=== PATIENT | male | born 1960 ===

== ENCOUNTER 2018-06-01 18:47 | Emergency (ER) | payer MEDICARE ==
[2018-06-01] MEDS ORDERED: ZOFRAN IV ONE (19:15)
[2018-06-01] MEDS ORDERED: NACL 0.9% 1000 ML 1,000 ML IV ONE (19:15)
[2018-06-01] MEDS ORDERED: MORPHINE IV ONE (19:16)
--- NOTE | 2018-06-01 19:22 | Emergency Department Report ---
HPI - General Chief Complaint: Abdominal Pain Time Seen by Provider: 06/01/18 19:15 - HPI HPI: 57-year-old -[place] male presents to the emergency department via EMS with complaint of a one-day history of generalized abdominal pain, nausea and vomiting. He has a history of recurrent pancreatitis, diabetes, peripheral neuropathy and history of alcohol abuse. He says that he had not drank any alcohol in about 3 months until he took a shot earlier today that started his symptoms. He did not receive anything for her symptoms in route. No recent travel or sick contacts at home. He denies any tobacco or illicit drug use or abuse. He says that he follows with a Dr. Stuart Gonzalez for primary care in [facility]. He denied feeling is that he had a fever despite the fact that he presents with a elevated temperature of 102.3 Fahrenheit. ED Past Medical Hx - Past Medical History Previous Medical History?: Yes Hx Diabetes: Yes Additional medical history: pancreatitis, ETOH abuse, Neuropathy. - Social History Smoking Status: Never Smoker Substance Use Type: Alcohol - Medications Home Medications: Home Medications Medication Instructions Recorded Confirmed Last Taken Type HYDROcodone/APAP 5-325 [[place] 1 each PO Q6HR PRN #10 tablet 06/01/18 Unknown Rx 5/325] levoFLOXacin [Levaquin] 750 mg PO QDAY #7 tablet 06/01/18 Unknown Rx ED Review of Systems ROS: Stated complaint: NAUSEA/VOMITING Other details as noted in HPI Comment: All other systems reviewed and negative Constitutional: fever (presents with fever). denies: weakness Eyes: denies: eye pain, eye discharge, vision change ENT: denies: ear pain, throat pain Respiratory: denies: cough, shortness of breath, wheezing Cardiovascular: denies: chest pain, palpitations Gastrointestinal: abdominal pain, nausea, vomiting Genitourinary: denies: urgency, dysuria Musculoskeletal: denies: back pain, joint swelling, arthralgia Skin: denies: rash, lesions Neurological: denies: headache, weakness Physical Exam - Physical Exam Vital Signs: Vital Signs 06/01/18 18:51 Temperature 102.3 F H Pulse Rate 93 H Respiratory 26 H Rate Blood Pressure 146/89 Blood Pressure 146/89 [Right] O2 Sat by Pulse 97 Oximetry Physical Exam: GENERAL: The patient is well-developed well-nourished. HENT: Normocephalic. Atraumatic. Patient has moist mucous membranes. EYES: Extraocular motions are intact. Pupils equal reactive to light bilaterally. NECK: Supple. Trachea is midline. CHEST/LUNGS: Clear to auscultation. There is no respiratory distress noted. HEART/CARDIOVASCULAR: Regular. There is no tachycardia. There is no murmur. ABDOMEN: Abdomen is soft. There is generalized abdominal tenderness to palpation. No guarding. Patient has normal bowel sounds. There is no abdominal distention. SKIN: There is no rash. There is no edema. There is no diaphoresis. NEURO: The patient is awake, alert, and oriented. The patient is cooperative. The patient has no focal neurologic deficits. The patient has normal speech. MUSCULOSKELETAL: There is no tenderness or deformity. There is no limitation range of motion. There is no evidence of acute injury. ED Course Vital Signs 06/01/18 18:51 Temperature 102.3 F H Pulse Rate 93 H Respiratory 26 H Rate Blood Pressure 146/89 Blood Pressure 146/89 [Right] O2 Sat by Pulse 97 Oximetry ED Medical Decision Making - Lab Data Result diagrams: 06/01/18 19:20 06/01/18 19:20 - Radiology Data Radiology results: report reviewed, image reviewed interpreted by me: Abdominal x-ray shows nonspecific nonobstructive bowel gas CT scan of the abdomen and pelvis with IV contrast shows a left lower lobe infiltrate suspicious for pneumonia. There is a intramedullary lalitha noted in the left femur. The patient is status post cholecystectomy. No pancreatic abnormalities seen. No signs of free fluid or free air. No evidence of small bowel dilatation. - Medical Decision Making Patient presents with a complaint of abdominal pain, nausea, vomiting. He presents with a fever. The patient has a history of recurrent pancreatitis and the patient admits to having a shot of alcohol earlier in the morning that started his symptoms. The patient does not have any leukocytosis. He has some mild hyponatremia with a sodium of 130, he has hyperglycemia with a sugar of 270 but does not appear to be in diabetic ketoacidosis. He has a normal lipase , slightly elevated bilirubin. Blood alcohol level is negative. The patient was given some IV fluid, Zofran and pain medication. A CT scan of the abdomen and pelvis was done that does not show any signs of any pancreatitis, shows the patient to be status post cholecystectomy but did show questionable left lower lobe infiltrate concerning for pneumonia. The patient was reevaluated multiple times over multiple hours and appears improved. There has been no vomiting since he has been in the emergency department the patient has been able to keep down some fluids orally. His abdomen was soft, nontoxic, nonrigid and his pain has improved. Vital signs are stable throughout his ED course and his fever resolved. The patient appears safe for discharge home at this time. He says that he has a primary care physician for follow-up in [facility]. He will go home with a small amount of pain medication, antibiotics for his pneumonia. He will return to the ER with any worsening of his symptoms or any acute distress. - Differential Diagnosis pancreatitis, hepatitis, gastritis, colitis, diverticulitis Critical Care Time: No Critical care attestation.: If time is entered above; I have spent that time in minutes in the direct care of this critically ill patient, excluding procedure time. ED Disposition Clinical Impression: Hyperglycemia Abdominal pain Qualifiers: Abdominal location: generalized Qualified Code(s): R10.84 - Generalized abdominal pain Pneumonia Qualifiers: Pneumonia type: due to unspecified organism Laterality: right Lung location: lower lobe of lung Qualified Code(s): J18.1 - Lobar pneumonia, unspecified organism Disposition: DC- TO HOME OR SELFCARE Is pt being admited?: No Condition: Stable Instructions: Community-acquired Pneumonia (ED), Abdominal Pain (ED), Diabetic Hyperglycemia (ED) Additional Instructions: Please follow-up with your primary care physician in the next few days. Return to the emergency Department with any worsening of your symptoms or any acute distress. Try and stay away from foods that are high in sugar, carbohydrates and starches to help with your diabetes. Keep a blood sugar log. Take the antibiotics as prescribed. You have been prescribed a medication that is sedating and therefore should not be taken prior to driving, working, and responsible for children and in no way should be mixed with alcohol of any quantity. Prescriptions: HYDROcodone/APAP 5-325 [[place] 5/325] 1 each PO Q6HR PRN #10 tablet PRN Reason: Pain levoFLOXacin [Levaquin] 750 mg PO QDAY #7 tablet Referrals: PRIMARY CARE, [Primary Care Provider] - ALISHA Forms: Work/School Release Form(ED) Time of Disposition: 23:59
[2018-06-01 19:35] LABS: Basophils # (Auto) 0.1 K/mm3 (0.0-0.1); Basophils % (Auto) 0.9 % (0.0-1.8); Eosinophils % (Auto) 0.1 % (0.0-4.3); Hematocrit 38.6 % (35.5-45.6); Hemoglobin 12.9 gm/dl (11.8-15.2); Lymphocytes # (Auto) 1.4 K/mm3 (1.2-5.4); Mean Corpuscular HGB Conc 34 % (32-34); Mean Corpuscular Hemoglobin 28 pg (28-32); Mean Corpuscular Volume 85 fl (84-94); Monocytes # (Auto) 1.1 K/mm3 (0.0-0.8); Monocytes % (Auto) 14.1 % (0.0-7.3); Platelet Count 193 K/mm3 (140-440); Red Blood Count 4.55 M/mm3 (3.65-5.03); Red Cell Distribution Width 13.9 % (13.2-15.2)
[2018-06-01] MEDS ORDERED: DILAUDID IV ONE ×2 (19:50→21:02)
--- NOTE | 2018-06-01 20:21 | XRay Report ---
FINAL REPORT EXAM: XR ABDOMEN 2V HISTORY: Abdominal Pain TECHNIQUE: Supine and upright abdomen PRIORS: None. FINDINGS: Moderate amount of stool and gas present within the colon. No evidence of colonic or small bowel dilatation. No signs of free air. No abnormal calcifications are identified. IMPRESSION: Nonobstructive bowel gas pattern. No acute abnormality seen.
[2018-06-01 20:48] LABS: Alanine Aminotransferase 35 units/L (7-56); BUN/Creatinine Ratio 8; Bilirubin,Direct 0.4 mg/dL (0-0.2); Blood Urea Nitrogen 8 mg/dL (9-20); Hemolysis Index 14; Lipase 9 units/L (13-60)
[2018-06-01 21:19] LABS: Bacteria,Urine 1+ /HPF (Negative); Bilirubin,Urine NEG (Negative); Blood,Urine NEG (Negative); Color,Urine Yellow (Yellow); Mucus,Urine FEW /HPF; Protein,Urine <15 mg/dL mg/dL (Negative)
[2018-06-01 23:19] VITALS: BP 129/67
--- NOTE | 2018-06-01 23:34 | Cat Scan Report ---
FINAL REPORT EXAM: CT ABDOMEN PELVIS W CON HISTORY: Abd pain TECHNIQUE: CT abdomen and pelvis with intravenous contrast PRIORS: None. FINDINGS: There is confluent patchy opacity present within the left lower lobe posteriorly suspicious for pneumonia No focal abnormality identified within the liver parenchyma. Patient is status post cholecystectomy The spleen demonstrates normal size and attenuation. No pancreatic abnormalities seen. The kidneys demonstrate symmetric contrast enhancement. No evidence of hydronephrosis. The adrenal glands are unremarkable Abdominal aorta is normal in caliber. No pathologically enlarged lymph nodes are identified. No signs of free fluid or free air No evidence of small bowel dilatation. Colon is nondistended. No pericolonic inflammatory change. The appendix is identified and is unremarkable. Noted is an intramedullary lalitha left femur Urinary bladder is unremarkable. IMPRESSION: Left lower lobe infiltrate suspicious for pneumonia Intramedullary lalitha noted in the left femur Status post cholecystectomy
[2018-06-01] MEDS ORDERED: TORADOL IV ONE (23:50)
[2018-06-01] MEDS ORDERED: LEVAQUIN 750MG/150ML 750 MG/150 ML BAG IV ONE (23:50)
[2018-06-01] MEDS ORDERED: LEVAQUIN PO ONE (23:58)
== END 2018-06-02 00:34 | disposition home or self-care (01) ==
LOC: ED 18:47
DX: E11.65 Type 2 diabetes mellitus with hyperglycemia (principal); J18.1 Lobar pneumonia, unspecified organism; E11.42 Type 2 diabetes mellitus with diabetic polyneuropathy
CPT/HCPCS: 36415; 74019; 74177; 80048; 80074; 81001; 83690; 85025; 96361; 96374; 96375; 96376; 99285; G0480; J1170; J2405; J7030; Q9967; 80320; J2270